=== PATIENT | male | born 1965 | race African-American/Black ===

== ENCOUNTER 2024-11-02 11:19 | Inpatient (IN) | payer OTHER ==
[2024-11-02 13:04] LABS: Absolute Eosinophils 0.1 K/uL (0-0.5); Absolute Lymphocytes (CBC) 1.9 K/uL (0.7-4.9); Absolute Monocytes 0.8 K/uL (0.1-1.3); Absolute Neutrophil 3.9 K/uL (1.8-8.0); Basophils % 0.4 % (0-1.3); Eosinophils % 1.4 % (0-4.4); Hematocrit 36.6 % (39.6-49.0); Hemoglobin 11.6 g/dL (13.6-17.9); Lymphocytes % 27.7 % (15.3-44.8); MCH 28.7 pg (27.0-35.0); MCHC 31.8 g/dL (32.0-36.0); MCV 90.3 fL (80-100); MPV 8.8 fL (7.6-11.3); Monocytes % 12.4 % (3.3-12.3); Neutrophils % 58.1 % (41.7-73.7); Platelets 247 thou/uL (152-406); RBC Red Blood Cell Count 4.05 M/uL (4.33-5.43); Red Cell Distribution Width 14.6 % (12.1-15.2)
[2024-11-02 13:21] LABS: ALT/SGPT < 14 U/L (16-61); AST/SGOT 18 U/L (15-37); Albumin 3.1 g/dL (3.4-5.0); Albumin/Globulin Ratio 0.6 (1.1-1.8); Alkaline Phosphatase 110 U/L (45-117); Anion Gap 9.7 mEq/L (5.0-15.0); BUN Blood Urea Nitrogen 36 mg/dL (7-18); Bicarbonate 24 mEq/L (21-32); Bilirubin Total < 0.2 mg/dL (0.2-1.0); Globulin 5.5 g/dL (2.3-3.5); Glomerular Filtration Rate 39 ml/min (=/>90); Glucose Level 96 mg/dL (74-106); Lipase 521 U/L (13-75); Potassium 4.7 mEq/L (3.5-5.1); Protein, Total 8.6 g/dL (6.4-8.2); Sodium Level 134 mEq/L (136-145)
[2024-11-02 13:52] LABS: Specific Gravity 1.006 (1.005-1.030); Sqamous Epithelial <5 /HPF (None Seen); Transitional Epithelial <5 /HPF (None Seen); Urine Bacteria None Seen /HPF (<20); Urine Bilirubin NEGATIVE (Negative); Urine Blood Negative (Negative); Urine Clarity Clear (Clear); Urine Color Colorless (Yellow); Urine Culture Reflex Order NOT NEEDED; Urine Glucose NEGATIVE (Negative); Urine Ketones NEGATIVE (Negative); Urine Microscopic Reflex YN ORDER UMIC; Urine Nitrite NEGATIVE (Negative); Urine Protein 1+ (Negative); Urine RBC <5 /HPF (None Seen); Urine Urobilinogen Normal (Normal); Urine WBC <5 /HPF (<5); Urine pH 6.5 (5.0-7.0)
--- NOTE | 2024-11-02 14:27 | RAD REPORT ---
EXAMINATION: CT ABDOMEN AND PELVIS WITH CONTRAST CLINICAL INDICATION: Abdominal pain TECHNIQUE: CT abdomen and pelvis was performed, after the administration of 70 cc Isovue-300.. Sagitt al and coronal reconstructions were obtained. One or more of the following dose reduction techniques were used: Automated exposure control, adjustment of the mA and kV according to patient si ze, and iterative reconstruction. Unless otherwise specified, incidental findings do not require dedicated imaging follow-up. [id number]. Oral contrast was not given which limits evaluation of bowel and appendix. COMPARISON: .2011 FINDINGS: Moderate to large ventral hernia above the level of the umbilicus. The neck measures 3 cm. The hernia contains a portion of transverse colon which is narrowed as it enters the hernia. There is moderate stranding within the herniated sac small amount of ill-defined fluid.: Proximal to the herni a is mildly dilated. Fluid throughout small bowel. Cholecystectomy. Liver, spleen, pancreas, adrenals and right kidney appear unremarkable. Small left renal cysts. No evidence of diverticulitis.. Normal appendix. Mild compression deformities involving L1 and L2 vertebral bodies probably chronic. : IMPRESSION: Moderate to large ventral hernia contains a portion of transverse colon. There probably is a partial obstruction present. Strangulation involving the hernia may be present.
--- NOTE | 2024-11-02 14:33 | EDPHYS ---
Physician Documentation [facility] Name: Salvatore Pretty Jr Age: 59 yrs Sex: Male : 1965 Arrival Date: 11/02/2024 Time: 11:19 Bed 8 Private MD: ED Physician David Duran HPI: 11/02 13:43 This 59 yrs old Black Male presents to ER via Ambulatory with complaints of stomach sp3 pain with lump. 13:43 59-year-old male with history of bipolar disease, hypertension, ventral hernia with sp3 mesh repair many years ago, now presents with worsening hernia relative to baseline with significant pain. Symptoms started yesterday after lifting heavy cases of water. Last BM 1 week ago. He denies any other symptoms clued bleeding, chest pain, back pain, shortness of breath, fever, or any other signs or symptoms on ROS at this time.. Historical: - Allergies: 11:40 No Known Allergies; iw - Home Meds: 11:40 Depakote ER 500 mg Oral Tb24 1 tab in am and 2 tab qhs [Active]; Seroquel 300 mg Oral iw tab 1 tab nightly [Active]; levothyroxine 112 mcg tab 1 tab once daily [Active]; metoprolol tartrate 100 mg Oral tab 1 tab 2 times per day [Active]; Lasix 40 mg Oral tab 1 tab 2 times per day [Active]; losartan 50 mg Oral tab 1 tab once daily [Active]; tramadol 50 mg Oral tab 1 tab as needed [Active]; Nexium 40 mg Oral cpDR 1 cap once daily [Active]; - PMHx: 11:40 Bipolar disorder; CAD; Depression; GERD; Hypertension; Hypothyroidism; iw - Immunization history:: Adult Immunizations not up to date. - Infectious Disease History:: Denies. - Social history:: Smoking status: Patient reports the use of cigarette tobacco products, Smoking status: Patient reports the use of cigarette tobacco products, smokes one pack cigarettes per day. ROS: 13:48 Constitutional: Negative for fever, chills, and weight loss, Eyes: Negative for injury, sp3 pain, redness, and discharge, ENT: Negative for injury, pain, and discharge, Neck: Negative for injury, pain, and swelling, Cardiovascular: Negative for chest pain, palpitations, and edema, Respiratory: Negative for shortness of breath, cough, wheezing, and pleuritic chest pain, Back: Negative for injury and pain, MS/Extremity: Negative for injury and deformity, Skin: Negative for injury, rash, and discoloration, Neuro: Negative for headache, weakness, numbness, tingling, and seizure, Psych: Negative for depression, anxiety, suicide ideation, homicidal ideation, and hallucinations, Allergy/Immunology: Negative for hives, rash, and allergies, Endocrine: Negative for neck swelling, polydipsia, polyuria, polyphagia, and marked weight changes, Hematologic/Lymphatic: Negative for swollen nodes, abnormal bleeding, and unusual bruising, 13:48 All other systems are negative, Exam: 13:49 Constitutional: This is a well developed, well nourished patient who is awake, alert, sp3 and in no acute distress. Head/Face: Normocephalic, atraumatic. Eyes: Pupils equal round and reactive to light, extra-ocular motions intact. Lids and lashes normal. Conjunctiva and sclera are non-icteric and not injected. Cornea within normal limits. Periorbital areas with no swelling, redness, or edema. Neck: Trachea midline, no thyromegaly or masses palpated, and no cervical lymphadenopathy. Supple, full range of motion without nuchal rigidity, or vertebral point tenderness. No Meningismus. Chest/axilla: Normal chest wall appearance and motion. Nontender with no deformity. No lesions are appreciated. Respiratory: Lungs have equal breath sounds bilaterally, clear to auscultation and percussion. No rales, rhonchi or wheezes noted. No increased work of breathing, no retractions or nasal flaring. Back: No spinal tenderness. No costovertebral tenderness. Full range of motion. Skin: Warm, dry with normal turgor. Normal color with no rashes, no lesions, and no evidence of cellulitis. MS/ Extremity: Pulses equal, no cyanosis. Neurovascular intact. Full, normal range of motion. Neuro: Awake and alert, GCS 15, oriented to person, place, time, and situation. Cranial nerves II-XII grossly intact. Motor strength 5/5 in all extremities. Sensory grossly intact. Cerebellar exam normal. Normal gait. Psych: Awake, alert, with orientation to person, place and time. Behavior, mood, and affect are within normal limits. 13:49 Abdomen/GI: Patient hypertensive but history of it. Ventral hernia noted nonreducible and painful., Vital Signs: 11:38 BP 188 / 104; Pulse 88; Resp 16; Temp 97.4; Pulse Ox 100% on R/A; Weight 65.77 kg; iw Height 5 ft. 3 in. ; Pain 10/10; 13:28 BP 204 / 114; Pulse 76; Pulse Ox 100% on R/A; MAP 141 mmHg; tm6 15:05 BP 222 / 115; Pulse 72; Pulse Ox 100% on R/A; MAP 147 mmHg; Pain 9/10; tm6 11:38 Body Mass Index 25.68 (65.77 kg, 160.02 cm) iw 11:38 Pain Scale: Adult iw 15:05 Pain Scale: Adult tm6 MDM: 11:53 Medical Screening Exam initiated sp3 13:49 Data reviewed: vital signs, nurses notes, lab test result(s), radiologic studies. ED sp3 course: 59-year-old male with ventral hernia and abdominal pain. Differential diagnosis includes incarcerated hernia versus nonincarcerated hernia versus bowel obstruction versus functional abdominal pain. Not highly suspicious of sepsis, shock, aortic pathology, pathology or any other process. Workup will include labs and CT scan of the abdomen pelvis with disposition pending results.. 14:30 ED course: Patient with palpable bowel obstruction and hernia strangulation with large sp3 bowel in the ventral portion. Discussed with Dr. French who will see patient in the ER and patient will be admitted. Patient will stay n.p.o. and we will introduce NG tube if necessary.. 11/02 11:53 Order name: CBC with Diff; Complete Time: 13:54 sp3 11/02 11:53 Order name: CMP; Complete Time: 13:54 sp3 11/02 11:53 Order name: Lipase; Complete Time: 13:54 sp3 11/02 11:53 Order name: Urinalysis w/ reflexes; Complete Time: 13:54 sp3 11/02 11:53 Order name: Lactate w/ 2H reflex if indic.; Complete Time: 13:54 sp3 11/02 14:31 Order name: PT-INR; Complete Time: 15:19 sp3 11/02 14:31 Order name: Ptt, Activated; Complete Time: 15:19 sp3 11/02 11:53 Order name: CT Abd/Pelvis - IV Contrast Only; Complete Time: 14:27 sp3 11/02 14:31 Order name: CXR XRAY; Complete Time: 15:19 sp3 11/02 14:31 Order name: EKG; Complete Time: 14:32 sp3 11/02 11:53 Order name: IV Saline Lock; Complete Time: 12:52 sp3 11/02 11:53 Order name: Labs collected and sent; Complete Time: 12:52 sp3 11/02 14:31 Order name: NPO; Complete Time: 14:37 sp3 11/02 14:31 Order name: EKG - Nurse/Tech; Complete Time: 15:05 sp3 Administered Medications: 15:18 Drug: morphine IVP or IV 4 mg IVP once over 4 mins Route: IVP; Infused Over: 4 mins; tm6 Site: left antecubital; 15:30 Follow up: Response: No adverse reaction tm6 15:18 Drug: Ondansetron IVP 4 mg IVP once; over 2 minutes Route: IVP; Site: left antecubital; tm6 15:31 Follow up: Response: No adverse reaction tm6 Disposition Summary: 11/02/24 14:32 Hospitalization Ordered Notes: Hospitalization Status: Inpatient Admission sp3 Provider: Akbar Medina sp3 Location: Telemetry/[facility] (Inpatient) sp3 Condition: Stable sp3 Problem: an acute exacerbation sp3 Symptoms: have worsened sp3 Bed/Room Type: Standard sp3 Room Assignment: sp3 Diagnosis - Ventral hernia, strangulated hernia, bowel obstruction sp3 Forms: - Medication Reconciliation Form sp3 - SBAR form sp3 - Leadership Thank You Letter sp3 Signatures: Dispatcher [employer] EDMuriel Blair RN RN iw David Duran MD MD sp3 Bacilio Calvin RN RN tm6 Corrections: (The following items were deleted from the chart) 11:42 11:40 Allergies: Unable to obtain; [facility] 11:54 11:54 CBC+H.LAB.BRZ ordered. EDMS EDMS 11:54 11:54 COMPREHENSIVE METABOLIC PANEL+C.LAB.BRZ ordered. EDMS EDMS 11:54 11:54 LIPASE+C.LAB.BRZ ordered. EDMS EDMS 11:54 11:54 Urinalysis+U.LAB.BRZ ordered. EDMS EDMS 11:54 11:54 LACTATE+C.LAB.BRZ ordered. EDMS EDMS 13:45 13:43 59-year-old male with history of bipolar disease, hypertension, ventral hernia sp3 with mesh repair many years ago, now presents with worsening hernia relative to baseline with significant pain. Last BM 1 week ago. He denies any other symptoms clued bleeding, chest pain, back pain, shortness of breath, fever, or any other signs or symptoms on ROS at this time.. sp3
--- NOTE | 2024-11-02 14:33 | ER ---
Nurse's Notes [facility] Name: Salvatore Pretty Jr Age: 59 yrs Sex: Male : 1965 Arrival Date: 11/02/2024 Time: 11:19 Bed 8 Private MD: Diagnosis: Ventral hernia, strangulated hernia, bowel obstruction Presentation: 11/02 11:38 Chief complaint: Patient states: has painful hernia in abdomen, vomiting after eating X iw 2-3 weeks ago , the hernia has gotten bigger, no BM X 10 days. Coronavirus screen: At this time, the client does not indicate any symptoms associated with coronavirus-19. Ebola Screen: No symptoms or risks identified at this time. Initial Sepsis Screen: Does the patient meet any 2 criteria? No. Patient's initial sepsis screen is negative. Does the patient have a suspected source of infection? No. Patient's initial sepsis screen is negative. Risk Assessment: Do you want to hurt yourself or someone else? Patient reports no desire to harm self or others. Onset of symptoms was October 17, 2024. 11:38 Method Of Arrival: Ambulatory iw 11:38 Acuity: NESHA 3 iw Historical: - Allergies: 11:40 No Known Allergies; iw - Home Meds: 11:40 Depakote ER 500 mg Oral Tb24 1 tab in am and 2 tab qhs [Active]; Seroquel 300 mg Oral iw tab 1 tab nightly [Active]; levothyroxine 112 mcg tab 1 tab once daily [Active]; metoprolol tartrate 100 mg Oral tab 1 tab 2 times per day [Active]; Lasix 40 mg Oral tab 1 tab 2 times per day [Active]; losartan 50 mg Oral tab 1 tab once daily [Active]; tramadol 50 mg Oral tab 1 tab as needed [Active]; Nexium 40 mg Oral cpDR 1 cap once daily [Active]; - PMHx: 11:40 Bipolar disorder; CAD; Depression; GERD; Hypertension; Hypothyroidism; iw - Immunization history:: Adult Immunizations not up to date. - Infectious Disease History:: Denies. - Social history:: Smoking status: Patient reports the use of cigarette tobacco products, Smoking status: Patient reports the use of cigarette tobacco products, smokes one pack cigarettes per day. Screenin:28 [facility] ED Fall Risk Assessment (Adult) History of falling in the last 3 months, tm6 including since admission No falls in past 3 months (0 pts) Confusion or Disorientation No (0 pts) Intoxicated or Sedated No (0 pts) Impaired Gait No (0 pts) Mobility Assist Device Used No (0 pt) Altered Elimination No (0 pt) Score/Fall Risk Level 0 - 2 = Low Risk Oriented to surroundings, Maintained a safe environment, Educated pt \\T\\ family on fall prevention, incl call for assistance when getting out of bed. Abuse screen: Denies threats or abuse. Denies injuries from another. Nutritional screening: No deficits noted. Tuberculosis screening: No symptoms or risk factors identified. Assessment: 13:28 General: Appears in no apparent distress. Behavior is calm, cooperative. Pain: tm6 Complains of pain in abdomen Pain currently is 7 out of 10 on a pain scale. Neuro: Level of Consciousness is awake, alert, obeys commands, Oriented to person, place, time, situation. Cardiovascular: Patient's skin is warm and dry. Respiratory: Airway is patent Respiratory effort is even, unlabored, Respiratory pattern is regular, symmetrical. GI: Abdomen is round distended, Last BM was October 26, 2024. Reports lower abdominal pain, upper abdominal pain, constipation, nausea. : No signs and/or symptoms were reported regarding the genitourinary system. EENT: No signs and/or symptoms were reported regarding the EENT system. Derm: No signs and/or symptoms reported regarding the dermatologic system. Musculoskeletal: No signs and/or symptoms reported regarding the musculoskeletal system. 15:04 Reassessment: Patient and/or family updated on plan of care and expected duration. Pain tm6 level reassessed. Patient is alert, oriented x 3, equal unlabored respirations, skin warm/dry/pink. 15:28 Reassessment: patient picked up by OR. tm6 Vital Signs: 11:38 BP 188 / 104; Pulse 88; Resp 16; Temp 97.4; Pulse Ox 100% on R/A; Weight 65.77 kg; iw Height 5 ft. 3 in. ; Pain 10/10; 13:28 BP 204 / 114; Pulse 76; Pulse Ox 100% on R/A; MAP 141 mmHg; tm6 15:05 BP 222 / 115; Pulse 72; Pulse Ox 100% on R/A; MAP 147 mmHg; Pain 9/10; tm6 11:38 Body Mass Index 25.68 (65.77 kg, 160.02 cm) iw 11:38 Pain Scale: Adult iw 15:05 Pain Scale: Adult tm6 ED Course: 11:22 Patient arrived in ED. ra3 11:39 David Duran MD is Attending Physician. sp3 11:40 Triage completed. iw 11:42 Arm band placed on. iw 12:39 Bacilio Calvin, RN is Primary Nurse. tm6 12:52 CBC with Diff Sent. tm6 12:52 CMP Sent. tm6 12:52 Lipase Sent. tm6 12:52 Lactate w/ 2H reflex if indic. Sent. tm6 12:53 Inserted saline lock: 20 gauge in right antecubital area, using aseptic technique. tm6 Blood collected. Flushed with 10 mL NS. 13:27 Urinalysis w/ reflexes Sent. tm6 13:28 Patient has correct armband on for positive identification. Placed in gown. Bed in low tm6 position. Call light in reach. Side rails up X 1. Provided Education on: use of call spaulding. Client placed on continuous cardiac and pulse oximetry monitoring. NIBP monitoring applied. Pulse ox on. NIBP on. Door closed. Noise minimized. Lights dimmed. Warm blanket given. Pillow given. 14:05 CT Abd/Pelvis - IV Contrast Only In Process Unspecified. EDMS 14:32 Akbar Medina MD is Hospitalizing Provider. sp3 14:42 CXR XRAY In Process Unspecified. EDMS 15:05 EKG done, by ED staff, reviewed by David Duran MD. tm6 15:05 PT-INR Sent. tm6 15:05 Ptt, Activated Sent. tm6 15:23 1523 CM met with patient at the bedside in the ED exam room. Patient identified by name ane and . Demographic sheet confirmed. PCP is in [place], [place]. No MPOA in place. Patient states he lives with his significant other in a ground floor apartment, and that prior to admission, he performs ADLs independently. No DME in the home, no HH, no home oxygen. Patient states he sometimes " My right leg goes numb and I can't walk" Hi preferred plan is to return home upon discharge and states that he has a friend that can transport him home. CM team will continue to follow and coordinate care. 15:28 No provider procedures requiring assistance completed. Patient admitted, IV remains in tm6 place. Administered Medications: 15:18 Drug: morphine IVP or IV 4 mg IVP once over 4 mins Route: IVP; Infused Over: 4 mins; tm6 Site: left antecubital; 15:30 Follow up: Response: No adverse reaction tm6 15:18 Drug: Ondansetron IVP 4 mg IVP once; over 2 minutes Route: IVP; Site: left antecubital; tm6 15:31 Follow up: Response: No adverse reaction tm6 Medication: 13:28 VIS not applicable for this client. tm6 Outcome: 14:32 Decision to Hospitalize by Provider. sp3 15:28 Admitted to OR accompanied by nurse, via wheelchair, tm6 15:28 Condition: stable 15:28 Instructed on the need for admit, 15:30 Patient left the ED. tm6 Signatures: Dispatcher [employer] EDMruiel Blair RN RN iw David Duran MD MD sp3 Bacilio Calvin RN RN [facility] Debra Amaya 3 Yanet Smith RN RN ane Corrections: (The following items were deleted from the chart) 11:42 11:40 Allergies: Unable to obtain; ramón melgar
[2024-11-02] MEDS ORDERED: MORPHINE 4 MG/ML SYR ONE (15:08)
[2024-11-02] MEDS ORDERED: ONDANSETRON 4 MG/2 ML VIAL ONE ×2 (15:11→15:26)
--- NOTE | 2024-11-02 15:13 | RAD REPORT ---
Procedure: Chest Single View HISTORY: Preop. Abdominal pain COMPARISON: 2017 FINDINGS: The lungs appear clear of acute infiltrate. No significant pleural effusion noted. The heart is normal size. IMPRESSION: No acute abnormality is displayed.
[2024-11-02 15:18] LABS: PT Prothrombin Time 11.9 SECONDS (9.4-12.5); PTT, Activated Partial Thromb 36.2 SECONDS (24.3-36.9); Protime INR 1.06
[2024-11-02] MEDS ORDERED: propofoL 200 MG/20 ML VIAL IV ONE (15:26)
[2024-11-02] MEDS ORDERED: FENTANYL CITR 100 MCG/2 ML ONE ×2 (15:26→16:33)
[2024-11-02] MEDS ORDERED: LIDOCAINE 2% MPF 5 ML VIAL ONE (15:26)
[2024-11-02] MEDS ORDERED: MIDAZOLAM HCL 2 MG/2 ML INJ ONE (15:27)
[2024-11-02] MEDS ORDERED: ROCURONIUM 50 MG/5 ML VIAL IV ONE ×2 (15:29→17:19)
[2024-11-02] MEDS: SUCCINYLCHOLINE 20 MG/ML (10 ML) IV ONE (15:36)
[2024-11-02] MEDS: Ringers Lactate 1,000 ML IV ONE ×2 (15:45→18:00)
[2024-11-02] MEDS ORDERED: ONDANSETRON 4 MG/2 ML VIAL IV PRN (16:07)
[2024-11-02] MEDS: NA CHLORIDE 0.9% 1,000 ML IV SCH (16:07)
[2024-11-02] MEDS: PIPER TAZO 3.375 GM in NA CHLORIDE 0.9% 100 ML IV ONE (16:30)
[2024-11-02] MEDS: LIDOCAINE HCL/EPINEPHRINE 20 ML MDV ONE (16:35)
[2024-11-02] MEDS ORDERED: LABETALOL 20 MG/4ML SYRINGE IV ONE (16:39)
[2024-11-02] MEDS ORDERED: dexAMETHasone 10 MG/ML VIAL ONE (16:47)
[2024-11-02] MEDS ORDERED: KETOROLAC 30 MG/ML INJ ONE (16:49)
[2024-11-02] MEDS: SUGAMMADEX SODIUM 200 MG/2 ML VIAL IV ONE (16:59)
--- NOTE | 2024-11-02 17:16 | P.HP ---
Certification for Inpatient Patient admitted to: Inpatient With expected LOS: >2 Midnights Practitioner: I am a practitioner with admitting privileges, knowledge of patient current condition, hospital course, and medical plan of care. Services: Services provided to patient in accordance with Admission requirements found in Title 42 Section 412.3 of the Code of Federal Regulations Patient History Date of Service: 11/02/24 History of Present Illness: 59-year-old male history of seizure disorder, depression presents to the emergency department chief complaint of abdominal pain/swelling. 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 Patient was evaluated in the emergency department and his labs were significant for sodium of 134 creatinine 1.92 BUN 36 GFR 39 lactic acid 1.[address] abdomen pelvis with IV contrast was performed which showed moderate to large ventral hernia contains a portion of transverse colon. There is probably a partial obstruction present. Strangulation involving the hernia may be present. Case was reviewed with general surgery who came to evaluate the patient at the bedside and will take patient to the OR Allergies No Known Allergies Allergy (Verified 12/02/16 07:37) Home Medications: Divalproex Sodium [Depakote ER] 1,000 mg PO BEDTIME 12/01/16 Divalproex Sodium [Depakote ER] 500 mg PO DAILY 12/01/16 Esomeprazole Mag Trihydrate [Nexium] 40 mg PO DAILY 12/01/16 Furosemide [Lasix*] 40 mg PO BID 12/01/16 Isosorbide Mononitrate [Isosorbide Mononitrate ER] 30 mg PO DAILY 12/01/16 Levothyroxine [Synthroid*] 112 mcg PO 0600 12/01/16 Losartan Potassium 50 mg PO DAILY 12/01/16 Metoprolol Tartrate 100 mg PO BID 12/01/16 Quetiapine Fumarate [Seroquel] 300 mg PO BEDTIME 12/01/16 Tramadol HCl [Ultram] 50 mg PO TID 12/01/16 - Past Medical/Surgical History -: bipolar disorder -: depression -: CAD -: HTN -: hypothyroidism -: GERD -: Seizures -: Hernia repair Psychosocial/ Personal History: Lives at home with friend, disabled - Social History Smoking Status: Current every day smoker Alcohol use: Yes CD- Drugs: Yes Caffeine use: Yes Place of Residence: Home Review of Systems 10-point ROS is otherwise unremarkable Gastrointestinal: Nausea, Abdominal Pain Physical Examination - Physical Exam General: Alert, In no apparent distress, Oriented x3 HEENT: Atraumatic, PERRLA, EOMI Neck: Supple, 2+ carotid pulse no bruit, No LAD Respiratory: Clear to auscultation bilaterally, Normal air movement Cardiovascular: Regular rate/rhythm, Normal S1 S2 Gastrointestinal: Normal bowel sounds, Tenderness (Moderate epigastric tenderness, large ventral hernia protruding from abdomen) Musculoskeletal: No tenderness Integumentary: No rashes Neurological: Normal speech, Normal strength at 5/5 x4 extr, Normal tone, Normal affect - Studies Laboratory Data (last 24 hrs) 11/02/24 11/02/24 11/02/24 15:03 12:48 12:48 WBC 6.70 Hgb 11.6 L Hct 36.6 L Plt Count 247 PT 11.9 INR 1.06 APTT 36.2 Sodium 134 L Potassium 4.7 BUN 36 H Creatinine 1.92 H Glucose 96 Total Bilirubin < 0.2 L AST 18 ALT < 14 L Alkaline Phosphatase 110 Lipase 521 H Assessment and Plan - Plan Assessment: Incarcerated/strangulated ventral hernia Acute kidney injury History of seizure disorder Bipolar disorder Plan: Incarcerated/strangulated ventral hernia Patient brought to OR urgently with general surgery Continue antibioticsZosyn Further management as recommended by general surgery Acute kidney injury Continue IV fluids Repeat chemistry in the morning Will consult nephrology if there is persistent dysfunction or worsening No obstructive findings on CT History of seizure disorder Bipolar disorder Continue home medications when tolerating p.o./meds are verified Reports his last seizure was 3 to 4 months ago DVT PPX: SCDs Code status: Full Discharge Plan: Home Plan to discharge in: Greater than 2 days - Advance Directives Does patient have a Living Will: No Does patient have a Durable POA for Healthcare: No - Code Status/Comfort Care Code Status Assessed: Yes (Full) Critical Care: No Time Spent Managing Pts Care (In Minutes): 65
[2024-11-02] MEDS ORDERED: MORPHINE 10 MG/ML VIAL ONE (17:34)
--- NOTE | 2024-11-02 18:18 | P.OP ---
Preoperative diagnosis: Large Bowel Obstruction due to Recurrent Ventral Incisional Hernia Postoperative diagnosis: Large Bowel Obstruction due to Recurrent Ventral Incisional Hernia Primary procedure: Exploratory laparoscopy converted to exploratory laparotomy Secondary procedure: Reduction of transverse colon, resection of pericolonic mass Other procedure(s): Primary repair of Recurrent Ventral Incisional Hernia Anesthesia: GETA + Local Estimated blood loss: 50cc Specimen: Pericolonic Mass off Mid-Transverse Colon Findings: Pericolonic Mass ~ 7cm off mid-Transverse Colon, Incarcerated Bowel Complications: None Drain(s): ELLIOT drain (10mm Flat) Transferred to: ICU Condition: Serious
[2024-11-02] MEDS: LABETALOL 20 MG/4ML SYRINGE IV ONE (18:26)
[2024-11-02] MEDS: HYDRALAZINE HCL 20 MG/ML VIAL ONE (18:34)
[2024-11-02] MEDS: HYDROMORPHONE HCL 1 MG/ML INJ ONE (18:46)
--- NOTE | 2024-11-02 20:12 | CON ---
Date of Consultation: 11/02/2024 Brief History Of Present Illness: The patient is a 59-year-old male, who comes in with past medical history of schizophrenia, bipolar, depression, seizure disorder, previous history of cholecystectomy and ventral hernia repair with mesh years ago, who presents with a 1-week history of decreased bowel function. He has not had a bowel movement in approximately 1 week. He has noticed progressive abdom inal pain and worsening of his hernia which he has had for many years. He developed severe onset of abdominal pain earlier today. Normally, the hernia has some mobility, but today became very firm, fi xed, tender, hard. He has nausea associated. He has not had similar episodes before to the surgery in the past. Past Medical History: Significant for coronary artery disease, depression, bipolar, schizophrenia, h ypertension, hypothyroidism, alcohol abuse. Past Surgical History: Cholecystectomy and ventral hernia repair with mesh. He does not recall deta ils of these above issues, however. Allergies: NO KNOWN DRUG ALLERGIES. Home Medications: Include Depakote, Seroquel, levothyroxine, metoprolol, Lasix, losartan, tramadol, Nexium. Social History: He smokes cigarettes. Denies recreational drug use other than marijuana. Marijuana , he does use it regularly. He drinks alcohol recreationally, but he states he no longer drinks heav pablo. Review of Systems: Ten-point review of systems other than HPI, denies. Physical Examination: General: At the time of my examination, he is awake, alert, and oriented. Psychiatric: He is appropriate. Conversive. HEENT: Normocephalic. Sclerae icteric. Mucous membranes moist. Pharynx clear. Neck: Supple without JVD. Chest: Normal expansion and excursion. Cardiovascular: Regular rate and rhythm. Pulmonary: Clear auscultation bilaterally. Abdomen: Soft with positive focal tenderness and peritonitis at the incarcerated periumbilical herni a. There is an incision overlying this consistent with an incarcerated possibly strangulated ventral incisional hernia. Extremities: No clubbing, cyanosis, or edema. Skin: Warm and dry. Laboratory Data: Revealed white blood cell count 6.67, hemoglobin 11.6, hematocrit of 36.6, platelet s are 247. His neutrophils are 58%, PT 11.9, INR 1.06, PTT 36.2. Sodium 134, potassium 4.7, chlorid e 105, carbon dioxide 24, BUN 36, creatinine 1.9, glucose is 96, lactic acid 1.2, total bilirubin les s than 0.2, AST 18, ALT less than 14, alkaline phosphatase 110, lipase is 521. Urinalysis essentiall y negative. He had a CT scan of the abdomen and pelvis, which was officially read as moderate to lar ge ventral hernia, contains a portion of transverse colon, probably partial obstruction present in st rangulation valve and the hernia may be present. He has had cholecystectomy as well. The neck measu res 3 cm of the ventral hernia as portions of the transverse colon as described. There is ill-define d fluid in the area at the level of the umbilicus. Assessment And Plan: This is a 59-year-old male, who comes in with signs and symptoms of an incarcer ated possible strangulated ventral incisional hernia. 1.IV fluid hydration. 2.Antibiotic coverage. 3.I have explained the risks, benefits, and alternatives of laparoscopic, possible open exploratory laparoscopy, hernia repair, reduction of hernia, possible small bowels/colonic bowel resection, need for further operation and procedures. I have explained that the patient could experience perioperati ve complications including, but not limited to bleeding, infection, damage to surrounding tissue, nee d for further operative procedures, injury to the bowel requiring colostomy, ileostomy, blood clots, heart attack, strokes, and other unforeseen complications in the perioperative period including anest hesia related complications. The patient displayed understanding of the above stated plan and agreed to proceed as indicated. Thank you for this interesting consult. ANIBAL/VÍCTOR Voice ID: [id number] Report ID: [id number]
[2024-11-02] MEDS: HYDROMORPHONE HCL 1 MG/ML INJ IV PRN (20:28)
[2024-11-02] MEDS: D5.45NS W/KCL 20MEQ 1,000 ML IV SCH (20:28)
[2024-11-02] MEDS: NICOTINE 21 MG/PAT TD SCH (20:29)
[2024-11-02] MEDS: HYDROCODONE/APAP 7.5/325 MG TAB PO PRN (20:36)
[2024-11-02] MEDS: HYDRALAZINE HCL 20 MG/ML VIAL IV PRN (22:18)
[2024-11-02] MEDS: Nicardipine/NS 25 MG/250 ML KIT IV SCH (23:51)
[2024-11-03] MEDS: PIPER TAZO 3.375 GM in NA CHLORIDE 0.9% 100 ML IV SCH (00:08)
--- NOTE | 2024-11-03 04:49 | OP ---
Date of Procedure: 11/02/2024 Surgeon: Madhu French MD, Preoperative Diagnosis: Large bowel obstruction due to recurrent ventral incisional hernia. Postoperative Diagnosis: Large bowel obstruction due to recurrent ventral incisional hernia. Procedure Performed: 1.Exploratory laparoscopy converted to exploratory laparotomy. 2.Reduction of transverse colon from ventral incisional hernia. 3.Resection of a rustam-transverse colonic mass which was also incarcerated and strangulated in hernia . 4.Primary repair of recurrent ventral incisional hernia. Anesthesia: General endotracheal plus local. Estimated Blood Loss: Less than 50 cc. Specimen: Pericolonic mass off the midtransverse colon. Findings: An approximately 7 cm pericolonic mass off the mid transverse colon which was incarcerated within the contents of the ventral abdominal hernia in addition to portions of the transverse colon. There was strangulation of this pericolonic mass and portions of the transverse colon were not isch emic, but were incarcerated. Complications: None. Drains: A 10 mm flat ELLIOT drain. Disposition: The patient transferred to ICU in serious condition. Procedure In Detail: After informed consent was obtained, the patient was brought to the operating r oom, prepped and draped in the usual sterile fashion after adequate anesthesia was achieved. I anest hetized the area of the left upper down to subcutaneous tissue. A 5 mm 0-degree optical trocar was i ntroduced in the abdomen without incident or complication. Insufflation was obtained to 15 mmHg at t his times. There was no injury to vital structures in the abdomen. At this point, additional trocar was placed, which is 12 mm trocar placed in the left mid abdomen and an additional [address] d in the left lower quadrant. All placed under direct vision without incident or complication. I th en proceeded to reduce the ventral incisional incarcerated hernia with strangulation of a rustam-transv erse colonic mass which appeared to have a cystic consistency, but was difficult to discern from the bowel itself. As I continued to dissect this around, portions of the omentum became devascularized a nd were removed and sent off as hernia contents on the back table. The dissection continued down lap aroscopically ultimately to reduce the hernia sac. Some hernia incarcerated fluid was appreciated in the area. The bowel appeared to be viable as it returned back to the normal anatomic position. How ever, there was a pericolonic mass which was indistinguishable from the transverse colon, but appeare d to have an appearance of almost a large diverticulum, however, is approximately 7-8 cm in size. It was difficult to assess whether this was contiguous with the bowel or was an adjacent structure of u ncertain etiology. As such, I opted to convert to a laparotomy at this point as I could not properly assessed this mass. At this point, the laparoscopic portion was discontinued. The abdomen was then opened with a midline laparotomy incision. At this point, the abdomen was then opened safely using combination of sharp dissection and electrocautery ultimately entering safely. At this point, I cassius mayda the residual trocars under vision without incidence or complication. I then easily grasped the t ransverse colon and delivered it through the upper midline mini-laparotomy incision. At this point, I had both the proximal and distal aspects of the mid transverse colon which appeared to be good, sof t, and viable with stool contained within. I could not separate the segment of this pericolonic mass which is near the mid transverse colon. As such, I opted to perform a possible bowel resection in t his area, but first I wanted to see if this was in continuity with the bowel and as such, I transecte d this mass in line with the transverse colon. Therefore, there appeared to be a cleavage plane betw een the 2 and as such, I followed this plane using predominantly sharp dissection and a combination o f minimal electrocautery and sharp dissection. At this point, I did not see any continuity with the transverse colon itself and as such, I passed this specimen to the back table to open later in the pr ocedure. At this point, I palpated the bowel. The stool contents passed easily from the proximal an d distal sides of the transverse colon. I then occluded both ends and attempted to deliver bowel thr ough this area of resection adjacent to the pericolonic mass. No gas, no stool contents were appreci ated. I submerged it in fluid and also look for any form of enteric contents again holding proximal and distal control to attempt to deliver stool which was easily palpable within the transverse colon or gas at this area. No bubbling was appreciated. No stool was appreciated coming through this area . As such, I did not believe that this actually communicated directly with the lumen of the colon. Therefore, I opted to whipstitch and reinforce this with a double 3-0 Prolene stitch to leave as a ma rking stitch as well as to close and reinforce this area. There appeared to be no contiguous communi cation with the transverse colon at this area. However, I wanted to tag this area in case the pathol ogy came back as some other issue and in addition to reinforce this area in case there was mucosa or serosal injury, which is beyond my ability to appreciate due to the significant scarring in this area . There was significant scarring appreciated throughout this portion of the transverse colon and it did have a somewhat thickened appearance, but the stool moved easily. There was no obvious serosal i njuries to this area that could be appreciated. As such, I left the 3-0 Prolene whipstitch in that v icinity, but I do not believe I compromise the lumen or even encounter the lumen of the transverse co brody at this portion. At this time, I submerged it once again. There was no evidence of leakage. Th e attempts were made to place an NG tube at this point as I palpated the stomach but were unsuccessfu l by my Anesthesia colleagues and as such I opted to abandon this portion as well. I then irrigated the abdomen and ensured hemostasis was achieved at this point with minimal LigaSure use. I then ulmarissa delarosaly brought in a 10 mm flat ELLIOT drain through the previous left upper quadrant trocar site, secured to the skin using a 3-0 nylon suture, and ultimately closed the 12 mm trocar site using a Ciro-Anthonyo debbi suture passer after placing abdominal Fish to protect the bowel, this was closed in its entiret y and reinforced with a #1 Vicryl at this point using a Ciro-Jf suture passer. The additiona l 5 mm trocar site was cleansed at this point. I then proceeded to close the abdominal compartment a fter wrapping that previous reinforcing stitch in the transverse colon with omentum which was vascula rized at this point. I ultimately placed the abdominal Fish in this area and closed the abdominal co mpartment using a #1 looped PDS in a running fashion, closing and imbricating the hernia sac at the s terry time with good apposition of the tissues. At this point, all skin incisions were then copiously irrigated and closed with interrupted harpreet and a sterile dressing placed over top. The patient to lerated the procedure without incident or complication, transferred to the PACU, ultimately to the ICU in stable condition. All counts were co rrect. TK/MODL Voice ID: [id number] Report ID: [id number]
[2024-11-03 06:20] LABS: Absolute Lymphocytes (CBC) 0.8 K/uL (0.7-4.9); Absolute Neutrophil 17.2 K/uL (1.8-8.0); Basophils % 0.1 % (0-1.3); Hematocrit 36.5 % (39.6-49.0); Lymphocytes % 4.3 % (15.3-44.8); MCHC 32.9 g/dL (32.0-36.0); MCV 88.3 fL (80-100); MPV 8.9 fL (7.6-11.3); Monocytes % 5.1 % (3.3-12.3); Neutrophils % 90.5 % (41.7-73.7); Platelets 295 thou/uL (152-406); RBC Red Blood Cell Count 4.14 M/uL (4.33-5.43); Red Cell Distribution Width 14.4 % (12.1-15.2)
[2024-11-03 06:35] LABS: Anion Gap 10.4 mEq/L (5.0-15.0); Magnesium 1.9 mg/dL (1.6-2.4); Potassium 5.4 mEq/L (3.5-5.1)
[2024-11-03 08:05] LABS: Blood Morphology Comment NOT SEEN (NOT SEEN); Platelet Estimate ADEQ; White Blood Cell Scan OK (OK)
[2024-11-03] MEDS: ENOXAPARIN 40 MG/0.4 ML SQ SCH (08:21)
[2024-11-03] MEDS: NA CHLORIDE 0.9% 1,000 ML IV SCH ×2 (08:21→13:49)
[2024-11-03] MEDS: ISOSORBIDE MONO SR 30 MG TAB PO ONE (10:13)
[2024-11-03] MEDS: METOPROLOL TAR 50 MG TAB PO ONE (10:13)
[2024-11-03 12:10] LABS: Anion Gap 8.8 mEq/L (5.0-15.0); Potassium 4.8 mEq/L (3.5-5.1)
[2024-11-03] MEDS ORDERED: D10W 125 ML IV PRN (13:04)
[2024-11-03] MEDS ORDERED: GLUCAGON 1 MG/VIAL IM PRN (13:04)
--- NOTE | 2024-11-03 13:04 | P.PN ---
Subjective Date of Service: 11/03/24 Chief Complaint: s/p Repair of Ventral Hernia - Bowel Obstruction Subjective: Improving (ambulatory, tolerating clears, feels need to have BM) Physical Examination - Vital Signs Temperature: 97.4 F Blood Pressure: 167/80 Pulse: 106 Respirations: 14 Pulse Ox (%): 100 - Physical Exam General: Alert, In no apparent distress, Oriented x3, Cooperative HEENT: Mucous membr. moist/pink Respiratory: Clear to auscultation bilaterally, Normal air movement Cardiovascular: Regular rate/rhythm Gastrointestinal: Other (Soft, mild appropriate tenderness to palpation, no rebound no guarding no focal peritonitis, ELLIOT serosanguineous. No evidence of hernia recurrence.) Musculoskeletal: No clubbing, No swelling Integumentary: No rashes Neurological: Normal gait, Normal speech - Studies Laboratory Data (last 24 hrs) 11/02/24 11/02/24 11/02/24 15:03 12:48 12:48 WBC 6.70 Hgb 11.6 L Hct 36.6 L Plt Count 247 PT 11.9 INR 1.06 APTT 36.2 Sodium 134 L Potassium 4.7 BUN 36 H Creatinine 1.92 H Glucose 96 Total Bilirubin < 0.2 L AST 18 ALT < 14 L Alkaline Phosphatase 110 Lipase 521 H Assessment And Plan - Current Problems (Diagnosis) (1) Ventral hernia with bowel obstruction Current Visit: Yes Status: Acute Plan: Patient is a 59-year-old male status post exploratory laparoscopy, conversion to open exploratory laparotomy, reduction of ventral transverse colonic hernia, resection of pericolonic mass along transverse colon. Postop day 0, date of surgery 11/02/2024 -General, continue current pain medication regimen with encouragement of p.o. intake and decrease IV as tolerated. -Pulmonary continue pulmonary toilet with incentive spirometry with goal of 50 cc per cake based on ideal body weight, -Cardiovascular: Continue management of hypertension as patient is chronic hypertension, -GI: Continue serial abdominal exams await pathology from mass removed, await bowel function, will add Dulcolax posit Karol, Colace p.o., continue clear liquid diet as tolerated. Do not advance diet at this point. -FEN: Continue current IV fluid regimen, electrolyte replacement protocol, nutrition with clear liquid diet, will advance later. Recommend nephrology consultation for patient's acute kidney injury. -ID: Continue Zosyn -Prophylaxis: Continue Lovenox, SCDs, ambulation with assist. -Endo: Low-dose insulin sliding scale recommended, continue monitoring -Nephro: Continue IV fluid hydration will consider change of IV fluids including rate and IV fluid choice based on nephrology consultation and recommendations, -Lines: ELLIOT drain
[2024-11-03] MEDS: TRAMADOL HCL 50 MG TAB PO SCH (13:17)
--- NOTE | 2024-11-03 13:33 | P.CNS ---
Date of Consult: 11/03/24 Reason for Consult: Renal insufficiency, elevated BP Requesting Physician: Abrahan Steele Chief Complaint: s/p Repair of Ventral Hernia - Bowel Obstruction History of Present Illness: 59-year-old AA male history of seizure disorder, depression, chronic HTN, hx of abdominal ventral hernia presented to the emergency department chief complaint of abdominal pain and enlarging hernia. Pt underwent CT abdomen pelvis with IV contrast was performed which showed moderate to large ventral hernia contains a portion of transverse colon. There was concern for obstruction or strangulation of bowel who pt to the OR and pt required conversion to open laparatomy given extensive findings as detailed in the surgeon's report. Pt's labs also notable for renal insufficiency, he does not report CKD and labs with PCP a year ago showed normal renal function tests then but acknowledges taking NSAIDs regularly for the abd pain related to the hernia Allergies No Known Allergies Allergy (Verified 12/02/16 07:37) Home Medications: Divalproex Sodium [Depakote ER] 1,000 mg PO BEDTIME 12/01/16 Esomeprazole Mag Trihydrate [Nexium] 40 mg PO DAILY 12/01/16 Furosemide [Lasix*] 40 mg PO BID 12/01/16 Isosorbide Mononitrate [Isosorbide Mononitrate ER] 30 mg PO DAILY 12/01/16 Levothyroxine [Synthroid*] 112 mcg PO 0600 12/01/16 Losartan Potassium 50 mg PO DAILY 12/01/16 Metoprolol Tartrate 100 mg PO BID 12/01/16 Quetiapine Fumarate [Seroquel] 300 mg PO BEDTIME 12/01/16 Tramadol HCl [Ultram] 50 mg PO TID 12/01/16 - Past Medical/Surgical History -: bipolar disorder -: depression -: CAD -: HTN -: hypothyroidism -: GERD -: Seizures -: Hernia repair Psychosocial/ Personal History: Lives at home with friend, disabled - Social History Smoking Status: Current every day smoker Alcohol use: Yes CD- Drugs: Yes Caffeine use: Yes Place of Residence: Home Review of Systems General: As per HPI Eyes: Unremarkable ENT: Unremarkable Respiratory: Unremarkable Cardiovascular: As per HPI Gastrointestinal: As per HPI Genitourinary: Unremarkable Musculoskeletal: Unremarkable Integumentary: Unremarkable Neurological: Unremarkable Lymphatics: Unremarkable Physical Examination Temp Pulse Resp BP Pulse Ox 97.4 F 106 H 22 H 167/80 H 98 11/03/24 13:04 11/03/24 13:04 11/03/24 13:17 11/03/24 13:04 11/03/24 13:17 General: Alert, In no apparent distress, Cooperative HEENT: Atraumatic, Normocephalic Neck: Supple Respiratory: Normal air movement, Other (no rales or wheezing) Cardiovascular: Regular rate/rhythm, No murmurs Gastrointestinal: Other (surgical incision with dressing, abd binder, mild distention, ELLIOT drains) Musculoskeletal: No tenderness, Swelling, Other (SCDs b/l) Integumentary: No rashes Neurological: Normal speech, Normal tone, Normal affect Laboratory Data (last 24 hrs) 11/02/24 15:03 PT 11.9 INR 1.06 APTT 36.2 Conclusions/Impression: A/P) 1. Possible sub-acute Stage 1 BEN as pt not known to have CKD with renal function tests last Sep within limits, with BEN likely multifactorial in the setting of combined ARB and NSAIDs use, other 2. Pt did receive contrast with admission CT so would monitor for any GRETA developing up to 48-72h from contrast exposure. Cont gentle IVF hydration 3. Pt is non oliguric, monitor UOP closely 4. Hypertensive urgency on admission, chronic sub optimally controlled HTN per reports. Hold ARB temp, cont other meds. Ok to use CCB therapy. Lower rate of IVF 5. Large abd ventral hernia, incarcerated bowel, other -management per surgery/IM
--- NOTE | 2024-11-03 13:53 | P.PN ---
Date of Service: 11/03/24 Subjective: Doing well postoperatively Reports improvement in pain from yesterday Positive flatus, no BM yet Weaning Cardene drip ROS: 10 point ROS as noted above, otherwise negative Physical exam GEN: Alert, oriented, NAD HEENT: Normal conjunctiva, sclera anicteric CV: Regular rate and rhythm, no edema Pulm: Nonlabored respirations on room air ABD: Soft, nontender, nondistended MSK: No joint tenderness Integumentary: No rashes Neuro: Normal speech, normal affect Vitals reviewed Assessment: Ventral hernia with bowel obstruction, pericolonic mass S/P open ex lap, reduction of ventral transverse colon hernia, resection of pericolonic mass 11/02/24 Hypertensive urgency Acute kidney injury History of seizure disorder Bipolar disorder Plan: Ventral hernia with bowel obstruction, pericolonic mass S/P open ex lap, reduction of ventral transverse colon hernia, resection of pericolonic mass 11/02/24 Day 1 post op Tolerating clears + Flatus, no BM yet Good urine output ELLIOT drain in place, serosanguineous drainage small amount Hypertensive urgency Home medications resumed Holding losartan given BEN Nephrology added amlodipine Acute kidney injury Continue IV fluids-rate reduced by nephrology Repeat chemistry in the morning Renal ultrasound ordered History of seizure disorder Bipolar disorder Home medications continued DVT PPX: Lovenox-ordered by general surgery Code status: Full Discharge Plan: Home Plan to discharge in: Greater than 2 days Time Spent Managing Pts Care (In Minutes): 35
[2024-11-03] MEDS: BISACODYL 10 MG RECTAL SUPP PR PRN (14:43)
--- NOTE | 2024-11-03 14:55 | RAD REPORT ---
EXAMINATION: US RETROPERITONEUM CLINICAL INDICATION: BEN TECHNIQUE: Real-time ultrasonography of the abdomen was performed. COMPARISON: 11/02/2024 FINDINGS: RIGHT KIDNEY: Right renal length measurement: 10.4 cm. Normal in echogenicity and size. No calculus, solid mass or hydronephrosis. LEFT KIDNEY: Left renal length measurement: 8 cm. Normal in echogenicity and size. No calculus, solid mass or hydronephrosis. Small benign hypoechoic left renal lesions which are likely cysts. The largest measures 11 mm. ADDITIONAL FINDINGS: Fluid collection which is not well assessed reportedly adjacent to the left kidn ey. IMPRESSION: No evidence of hydronephrosis. Benign renal cysts. Partially imaged fluid collection reportedly adjacent to the left kidney/flank. Reportedly, the patie nt has a surgical drain in this region.
[2024-11-03] MEDS: INSULIN REGULAR (HUMAN) 100 UNIT/ML SQ SCH (16:01)
[2024-11-03] MEDS: METOPROLOL TAR 50 MG TAB PO SCH (16:25)
[2024-11-03] MEDS: clonazePAM 0.5 MG TAB PO PRN (16:43)
[2024-11-03] MEDS: AMLODIPINE 5 MG TAB PO SCH (20:24)
[2024-11-03] MEDS: DIVALPROEX ER 250 MG TAB PO SCH (20:25)
[2024-11-03] MEDS: DOCUSATE NA 100 MG CAP PO SCH (20:25)
[2024-11-03] MEDS: QUETIAPINE 100MG TAB PO SCH (20:25)
[2024-11-03] MEDS ORDERED: HOME MED 1 EA UNK (Metoprolol Tartrate [Metoprolol Tartrate] 100 MG Tablet) PO SCH (21:00)
[2024-11-03] MEDS ORDERED: HOME MED 1 EA UNK (Quetiapine Fumarate [Seroquel] 300 MG Tablet) PO SCH (21:00)
[2024-11-04 04:32] VITALS: O2SAT 100
[2024-11-04 05:34] VITALS: BMI 27.3
[2024-11-04 05:37] LABS: Absolute Eosinophils 0.1 K/uL (0-0.5); Absolute Lymphocytes (CBC) 1.4 K/uL (0.7-4.9); Absolute Monocytes 0.9 K/uL (0.1-1.3); Absolute Neutrophil 8.3 K/uL (1.8-8.0); Basophils % 0.2 % (0-1.3); Eosinophils % 0.9 % (0-4.4); Hematocrit 31.7 % (39.6-49.0); Hemoglobin 10.4 g/dL (13.6-17.9); Lymphocytes % 12.8 % (15.3-44.8); MCH 29.2 pg (27.0-35.0); MCHC 32.9 g/dL (32.0-36.0); MCV 88.8 fL (80-100); MPV 8.3 fL (7.6-11.3); Monocytes % 8.8 % (3.3-12.3); Neutrophils % 77.3 % (41.7-73.7); Nucleated Red Blood Cells % 0.1 % (0-0); Platelets 270 thou/uL (152-406); RBC Red Blood Cell Count 3.57 M/uL (4.33-5.43); Red Cell Distribution Width 14.5 % (12.1-15.2)
[2024-11-04] MEDS: PANTOPRAZOLE 40MG TABLET PO SCH (05:50)
[2024-11-04] MEDS: LEVOTHYROXINE SOD 0.112 MG TAB PO SCH (05:50)
[2024-11-04 05:51] LABS: Anion Gap 7.4 mEq/L (5.0-15.0); Potassium 5.4 mEq/L (3.5-5.1)
[2024-11-04] MEDS ORDERED: HOME MED 1 EA UNK (Esomeprazole Mag Trihydrate [Nexium] 40 MG Capsule.Dr) PO SCH (09:00)
[2024-11-04] MEDS ORDERED: LOSARTAN POTASSIUM 50 MG TABLET PO SCH (09:00)
[2024-11-04] MEDS: ISOSORBIDE MONO SR 30 MG TAB PO SCH (09:01)
--- NOTE | 2024-11-04 09:52 | P.PN ---
Date of Service: 11/04/24 Subjective: Doing well postoperatively Reports improvement in pain from yesterday BM x 2 yesterday Off Cardene drip Downgrade to floor ROS: 10 point ROS as noted above, otherwise negative Physical exam GEN: Alert, oriented, NAD HEENT: Normal conjunctiva, sclera anicteric CV: Regular rate and rhythm, no edema Pulm: Nonlabored respirations on room air ABD: Soft, nontender, nondistended, ELLIOT drain in place, abd dressings CDI MSK: No joint tenderness Integumentary: No rashes Neuro: Normal speech, normal affect Vitals reviewed Assessment: Ventral hernia with bowel obstruction, pericolonic mass S/P open ex lap, reduction of ventral transverse colon hernia, resection of pericolonic mass 11/02/24 Hypertensive urgency Acute kidney injury History of seizure disorder Bipolar disorder Plan: Ventral hernia with bowel obstruction, pericolonic mass S/P open ex lap, reduction of ventral transverse colon hernia, resection of pericolonic mass 11/02/24 Day 1 post op Tolerating diet as ordered by surgery BM x 2 11/03 Good urine output ELLIOT drain in place, serosanguineous drainage small amount Hypertensive urgency Home medications resumed Holding losartan given BEN Nephrology added amlodipine BP 140s to 150s Acute kidney injury Continue IV fluids-rate reduced by nephrology Repeat chemistry in the morning Renal ultrasound ordered History of seizure disorder Bipolar disorder Home medications continued DVT PPX: Lovenox-ordered by general surgery Code status: Full Discharge Plan: Home Plan to discharge in: Greater than 2 days Time Spent Managing Pts Care (In Minutes): 35
--- NOTE | 2024-11-04 14:28 | P.PN ---
(S) Pt moved out of the ICU, reports some abd pain, no distress, no N/V noted, not needing O2. BP remains mod elevated (O) vitals reviewed in the EMR General: Alert, In no apparent distress, Cooperative HEENT: Atraumatic, Normocephalic, not needing O2 Neck: Supple Respiratory: Normal air movement, Other (no rales or wheezing) Cardiovascular: Regular rate/rhythm, No murmurs Gastrointestinal: Other (surgical incision with dressing, abd binder off, mild distention, reduced BS, ELLIOT drains) Musculoskeletal: No tenderness, Swelling, Other (SCDs b/l) Integumentary: No rashes Neurological: Normal speech, Normal tone, Normal affect Laboratory Data (last 24 hrs) Conclusions/Impression: A/P) 1. Possible sub-acute Stage 1 BEN as pt not known to have CKD with renal function tests last Sep within limits, with BEN likely multifactorial in the setting of combined ARB and NSAIDs use, other. Mild hyperkalemia -K < 5.5, monitor closely, place on low K diet when advanced, do not use cation exchangers given his bowel surgery 2. Pt did receive contrast with admission CT so would monitor for any GRETA developing up to 48-72h from contrast exposure, thus far levels plateaued. Cont gentle IVF hydration 3. Pt's UOP has been good, monitor I/Os 4. Hypertensive urgency on admission, chronic sub optimally controlled HTN per reports. Hold ARB temp, cont other meds. Ok to use CCB therapy. Lowered rate of IVF 5. Large abd ventral hernia, incarcerated bowel, other -management per surgery/IM
[2024-11-04] MEDS: NACHLORIDE 0.45% 1,000 ML with NA BICARB 8.4% 75 MEQ IV SCH (14:42)
[2024-11-04] MEDS: HYDRALAZINE HCL 25 MG TABLET PO PRN (22:41)
[2024-11-05] MEDS: cloNIDine HCL 0.1 MG TAB PO ONE (01:12)
[2024-11-05 05:46] LABS: Absolute Eosinophils 0.3 K/uL (0-0.5); Absolute Monocytes 1.1 K/uL (0.1-1.3); Absolute Neutrophil 5.2 K/uL (1.8-8.0); Basophils % 0.3 % (0-1.3); Hematocrit 29.3 % (39.6-49.0); Hemoglobin 9.4 g/dL (13.6-17.9); Lymphocytes % 22.9 % (15.3-44.8); MCH 29.1 pg (27.0-35.0); MCHC 32.1 g/dL (32.0-36.0); MCV 90.6 fL (80-100); MPV 8.9 fL (7.6-11.3); Monocytes % 12.9 % (3.3-12.3); Neutrophils % 60.9 % (41.7-73.7); Platelets 235 thou/uL (152-406); RBC Red Blood Cell Count 3.24 M/uL (4.33-5.43); Red Cell Distribution Width 14.7 % (12.1-15.2)
[2024-11-05 06:03] LABS: Anion Gap 8.4 mEq/L (5.0-15.0); Magnesium 1.8 mg/dL (1.6-2.4); Potassium 5.4 mEq/L (3.5-5.1)
[2024-11-05] MEDS: MAGNESIUM SULFATE 1 gm IVPB 1 GM/100 ML BAG IV ONE (08:00)
--- NOTE | 2024-11-05 14:06 | P.DS ---
Admission Date: 11/02/24 Discharge Date: 11/05/24 Disposition: ROUTINE DISCHARGE Discharge Condition: GOOD Reason for Admission: s/p Repair of Ventral Hernia - Bowel Obstruction Consultations: General SurgeryDr. French NephrologyDr. Ardon Brief History of Present Illness: 59-year-old male history of seizure disorder, depression presents to the emergency department chief complaint of abdominal pain/swelling. He reports that he has had a ventral hernia for a long time now but yesterday when bending down to [employer] water he felt an onset of abdominal pain and enlarging hernia. Patient was evaluated in the emergency department and his labs were significant for sodium of 134 creatinine 1.92 BUN 36 GFR 39 lactic acid 1.[address] abdomen pelvis with IV contrast was performed which showed moderate to large ventral hernia contains a portion of transverse colon. There is probably a partial obstruction present. Strangulation involving the hernia may be present. Case was reviewed with general surgery who came to evaluate the patient at the bedside and will take patient to the OR Hospital Course: Assessment: Ventral hernia with bowel obstruction, pericolonic mass S/P open ex lap, reduction of ventral transverse colon hernia, resection of pericolonic mass 11/02/24 Hypertensive urgency Acute kidney injury History of seizure disorder Bipolar disorder Patient was admitted to the hospital for ventral hernia with bowel obstruction.he underwent ex lap for ventral hernia with bowel obstruction,pericolonic mass status with reduction of the ventral transverse colon hernia and resection of pericolonic mass. He has done well postoperatively, tolerating a soft diet, ELLIOT drain was removed today on 11/05. Pain is well-controlled with oral medications, bowel function present. Cleared from a surgical persective for DC. Additionally on admission patient was noted to have an acute kidney injury, his creatinine on admission was 1.92, it is stayed around 1.8-1.9 throughout hospitalization. Also slightly hyperkalemic his potassium has been around 5- 5.4, potassium was 5.4 today on 11/05. Cannot give any Kayexalate or Lokelma as he had recent bowel surgery. Discussed with nephrology, preference would be for IV hydration, repeat labs but patient has refused IV hydration as the pump is frustrating him and he does not want to stay in the hospital any longer. He was counseled on maintaining a low potassium diet and close follow-up for repeat BMP in 1 week. Nephrology also recommends discontinuing losartan, this will be replaced with amlodipine 5 mg daily which is sent to the pharmacy. STOP YOUR LOSARTAN AND DO NOT TAKE ANY anti-inflammatory pain medications including ibuprofen, Aleve, Excedrin Continue other home medications as previously prescribed Prescriptions for antibiotics and pain medicine sent to the pharmacy Vital Signs/Physical Exam: Temp Pulse Resp BP Pulse Ox 97.8 F 69 18 156/97 H 98 11/05/24 12:00 11/05/24 12:00 11/05/24 12:00 11/05/24 12:00 11/05/24 12:00 General: Alert, In no apparent distress, Oriented x3 HEENT: Atraumatic, PERRLA Neck: Supple, JVD not distended Respiratory: Clear to auscultation bilaterally, Normal air movement Cardiovascular: Regular rate/rhythm, Normal S1 S2 Gastrointestinal: Normal bowel sounds, No tenderness, Other (Abdominal dressings CDI) Musculoskeletal: No tenderness Integumentary: No rashes Neurological: Normal speech, Normal affect Laboratory Data at Discharge: WBC 8.60 thou/uL (4.3-10.9) 11/05/24 05:24 Hgb 9.4 g/dL (13.6-17.9) L D 11/05/24 05:24 Hct 29.3 % (39.6-49.0) L 11/05/24 05:24 Plt Count 235 thou/uL (152-406) 11/05/24 05:24 PT 11.9 SECONDS (9.4-12.5) 11/02/24 15:03 INR 1.06 11/02/24 15:03 APTT 36.2 SECONDS (24.3-36.9) 11/02/24 15:03 Sodium 138 mEq/L (136-145) 11/05/24 05:24 Potassium 5.4 mEq/L (3.5-5.1) H 11/05/24 05:24 BUN 20 mg/dL (7-18) H 11/05/24 05:24 Creatinine 1.80 mg/dL (0.70-1.30) H 11/05/24 05:24 Glucose 93 mg/dL (74-106) 11/05/24 05:24 Magnesium 1.8 mg/dL (1.6-2.4) 11/05/24 05:24 Total Bilirubin < 0.2 mg/dL (0.2-1.0) L 11/02/24 12:48 AST 18 U/L (15-37) 11/02/24 12:48 ALT < 14 U/L (16-61) L 11/02/24 12:48 Alkaline Phosphatase 110 U/L (45-117) 11/02/24 12:48 Lipase 73 U/L (13-75) 11/03/24 05:07 Home Medications: Divalproex Sodium [Depakote ER] 1,000 mg PO BEDTIME 12/01/16 Esomeprazole Mag Trihydrate [Nexium] 40 mg PO DAILY 12/01/16 Furosemide [Lasix*] 40 mg PO BID 12/01/16 Isosorbide Mononitrate [Isosorbide Mononitrate ER] 30 mg PO DAILY 12/01/16 Levothyroxine [Synthroid*] 112 mcg PO 0600 12/01/16 Metoprolol Tartrate 100 mg PO BID 12/01/16 Quetiapine Fumarate [Seroquel] 300 mg PO BEDTIME 12/01/16 Tramadol HCl [Ultram] 50 mg PO TID 12/01/16 Amlodipine [Norvasc*] 5 mg PO BEDTIME #30 tab 11/05/24 Amox/Clavulanate [Augmentin 875-125 Tab*] 875 mg PO BID 7 Days #14 tab 11/05/24 Hydrocodone Bit/Acetaminophen [[place] 7.5-325 Tablet] 1 tab PO Q8H PRN #15 tab 11/05/24 Hydrocodone/Acetaminophen [Hydrocodon-Acetaminoph 7.5-325] 1 tab PO Q8H PRN #15 tab 11/05/24 New Medications: Amox/Clavulanate [Augmentin 875-125 Tab*] 875 mg PO BID 7 Days #14 tab Hydrocodone/Acetaminophen [Hydrocodon-Acetaminoph 7.5-325] 1 tab PO Q8H PRN #15 tab PRN Reason: Pain Scale 8-10 (Severe) Hydrocodone Bit/Acetaminophen [[place] 7.5-325 Tablet] 1 tab PO Q8H PRN #15 tab PRN Reason: Pain Scale 8-10 (Severe) Amlodipine [Norvasc*] 5 mg PO BEDTIME #30 tab Physician Discharge Instructions: Patient was admitted to the hospital for ventral hernia with bowel obstruction.he underwent ex lap for ventral hernia with bowel obstruction,pe ricolonic mass status with reduction of the ventral transverse colon hernia and resection of pericolonic mass. He has done well postoperatively, tolerating a soft diet, ELLIOT drain was removed today on 11/05. Pain is well-controlled with oral medications, bowel function present. Cleared from a surgical persective for DC. Additionally on admission patient was noted to have an acute kidney injury, his creatinine on admission was 1.92, it is stayed around 1.8-1.9 throughout hospitalization. Also slightly hyperkalemic his potassium has been around 5- 5.4, potassium was 5.4 today on 11/05. Cannot give any Kayexalate or Lokelma as he had recent bowel surgery. Discussed with nephrology, preference would be for IV hydration, repeat labs but patient has refused IV hydration as the pump is frustrating him and he does not want to stay in the hospital any longer. He was counseled on maintaining a low potassium diet and close follow-up for repeat BMP in 1 week. Nephrology also recommends discontinuing losartan, this will be replaced with amlodipine 5 mg daily which is sent to the pharmacy. STOP YOUR LOSARTAN AND DO NOT TAKE ANY anti-inflammatory pain medications including ibuprofen, Aleve, Excedrin Continue other home medications as previously prescribed Prescriptions for antibiotics and pain medicine sent to the pharmacy Diet: Low potass Activity: Ad ronel Followup: Raulito Ardon DO [ACTIVE - CAN ADMIT] - Madhu French MD [ACTIVE - CAN ADMIT] - 1-2 Weeks NONE,NONE [Primary Care Provider] - Time spent managing pt's care (in minutes): 36
[2024-11-05 16:12] VITALS: BP 154/91; TEMP 98.3
--- NOTE | 2024-11-05 20:53 | P.PN ---
Date of Service: 11/05/24 Vital Signs Temp Pulse Resp BP Pulse Ox 98.3 F 74 18 154/91 H 98 11/05/24 16:00 11/05/24 17:45 11/05/24 16:00 11/05/24 17:45 11/05/24 12:00 Assessment/ Plan: Nephrology No dyspnea No chest pain Feeling better No acute events overnight Vitals, medications, blood work and imaging reviewed in the chart NAD. MMM. NCAT. Normal Respiratory Effort. S1S2. ND Abd. No C/C/E. No rash. AAO. Normal speech. Stage I BEN Suspected CKD III with Proteinuria -No NSAIDs -Maintain adequate hydration; patient refused IVF Hyperkalemia -Low potassium diet HTN with CKD -Continue Amlodipine DM II with CKD -RISS Anemia in chronic illness -Monitor H&H -PRBC prn Case reviewed with Dr. Medina
[2024-11-05] MEDS ORDERED: AMOX/K CLAV 875 MG TAB PO SCH (21:00)
--- NOTE | 2024-11-09 16:15 | EKG ---
Test Date: 2024-11-02 Test Time: 14:57:58 Rope Tow Operator: MAURICIO MEASUREMENT RESULTS: Intervals: Rate: 75 WI: 188 QRSD: 102 QT: 430 QTc: 480 [place]: P: 37 WI: 188 QRS: 9 T: -4 INTERPRETIVE STATEMENTS: Normal sinus rhythm Minimal voltage criteria for LVH, may be normal variant Septal infarct, age undetermined Abnormal ECG Compared to ECG 12/02/2016 08:38:08 Left ventricular hypertrophy now present Myocardial infarct finding now present ST (T wave) deviation no longer present Electronically Signed On 11-09-24 16:07:10 SENIOR TECHNICAL SUPPORT ANALYST by Alessandro La
== END 2024-11-05 18:29 | disposition home or self-care (01) | DRG 330 ==
LOC: ER 11:19 → ERHOLD 15:53 → 3RD-ICU 20:00 → 2ND 11-04 10:35
PROVIDERS: ADMIT Hospitalist; ATTEND Hospitalist
PROC: 0DSL0ZZ Reposition Transverse Colon, Open Approach (ICD-10-PCS; 2024-11-02)
PROC: 0WQF0ZZ Repair Abdominal Wall, Open Approach (ICD-10-PCS; 2024-11-02)
PROC: 0DBL0ZZ Excision of Transverse Colon, Open Approach (ICD-10-PCS; principal; 2024-11-02 16:45)
DX: K43.0 Incisional hernia with obstruction, without gangrene (principal); N17.9 Acute kidney failure, unspecified; F31.9 Bipolar disorder, unspecified; E87.5 Hyperkalemia; I12.9 Hypertensive chronic kidney disease with stage 1 through stage 4 chronic kidney disease, or unspecified chronic kidney disease; N18.30 Chronic kidney disease, stage 3 unspecified; D63.1 Anemia in chronic kidney disease; K21.9 Gastro-esophageal reflux disease without esophagitis; E03.9 Hypothyroidism, unspecified; I16.0 Hypertensive urgency; G40.909 Epilepsy, unspecified, not intractable, without status epilepticus; I25.10 Atherosclerotic heart disease of native coronary artery without angina pectoris; F17.210 Nicotine dependence, cigarettes, uncomplicated; Z90.49 Acquired absence of other specified parts of digestive tract; Z53.31 Laparoscopic surgical procedure converted to open procedure; Z79.890 Hormone replacement therapy; Z79.899 Other long term (current) drug therapy
CPT/HCPCS: 36415; 71045; 74177; 76770; 80048; 80053; 81001; 82947; 83605; 83690; 83735; 85025; 85610; 85730; 88302; 88305; 93005; 94010; 96374; 96375; 99285; J0360; J1100; J1171; J1650; J2003; J2250; J2405; J2543; J2704; J3010; J7030; J7120; Q9967